=== PATIENT | female | born 1955 ===

== ENCOUNTER → 2018-05-26 | Emergency (ER) | payer BC ==
[~2018-05-26] VITALS: Ht 162.6 cm; Wt 72.1 kg
== END | disposition home or self-care (01) ==
LOC: ER 12:06
DX: L03.116 Cellulitis of left lower limb (principal); L02.416 Cutaneous abscess of left lower limb; B95.61 Methicillin susceptible Staphylococcus aureus infection as the cause of diseases classified elsewhere; B96.89 Other specified bacterial agents as the cause of diseases classified elsewhere